=== PATIENT | male | born 1970 | race Caucasian/White ===

== ENCOUNTER 2018-06-10 14:06 | Outpatient (CLI) | payer BC ==
--- NOTE | 2018-06-10 15:46 | RAD ---
LUMBAR SPINE THREE VIEWS: History: Low back pain. FINDINGS/IMPRESSION: Mild degenerative changes are present. No fracture, subluxation, or bony destruction is identified. POS: OFF
== END 2018-06-10 14:07 | disposition home or self-care (01) ==
LOC: RAD-FRANK 14:06
PROVIDERS: ATTEND Nurse Practitioner Family
DX: M54.5 Low back pain (principal); M47.816 Spondylosis without myelopathy or radiculopathy, lumbar region
CPT/HCPCS: 72100

== ENCOUNTER 2018-07-07 14:23 | Outpatient (CLI) | payer BC ==
--- NOTE | 2018-07-07 15:37 | RAD ---
RIGHT HIP TWO VIEWS: 07/07/18 INDICATION: History of right hip pain. FINDINGS: No acute fracture or subluxation is evident. 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 IMPRESSION: Mild degenerative change of the right hip. POS: C
--- NOTE | 2018-07-07 15:39 | RAD ---
THREE VIEWS OF THE LUMBOSACRAL SPINE: 07/07/18 INDICATION: History of low back pain. FINDINGS: There are five lumbar type vertebrae. Vertebral body heights appear preserved. There is mild disc deg enerative disease which is stable to a comparison dated 06/10/18. Spinal alignment is within normal limits. SI joints appear within normal limits. Surgical clips are seen within the right upper quadran t. IMPRESSION: Mild spondylosis of the lumbar spine is stable. No acute abnormality is evident. POS: C
== END 2018-07-07 14:24 | disposition home or self-care (01) ==
LOC: RAD-FRANK 14:23
PROVIDERS: ATTEND Nurse Practitioner Family
DX: M25.551 Pain in right hip (principal); M54.41 Lumbago with sciatica, right side; M47.816 Spondylosis without myelopathy or radiculopathy, lumbar region; M16.11 Unilateral primary osteoarthritis, right hip
CPT/HCPCS: 72100

== ENCOUNTER 2022-01-07 08:08 | Outpatient (CLI) | payer BC | END 2022-01-07 08:09 | disposition home or self-care (01) | LOC: RAD-FRANK 08:08 | PROVIDERS: ATTEND Nurse Practitioner Family | DX: M79.672 Pain in left foot (principal); M89.9 Disorder of bone, unspecified ==